=== PATIENT | female | born 1980 | race Two or more races ===

== ENCOUNTER 2019-01-03 16:49 | Emergency (ER) | payer OTHER ==
[~2019-01-03] VITALS: Ht 157.5 cm; Wt 77.1 kg
--- NOTE | 2019-01-03 17:10 | NUR ---
ED Nurse Note: Patient walked into ED c/o coughing, sore throat for 4 days patient reports fever at home 01/02/19
--- NOTE | 2019-01-03 17:27 | Emergency Room Report ---
History of Present Illness General Chief Complaint: Sore Throat Source: Patient Present Illness HPI 38-year-old female presents to the emergency department complaining of 7 out of 10 in severity sore throat with dry persistent cough 4 days. Patient reports subjective fever yesterday which responded well to Tylenol. Patient reports history of bronchitis and she is very prone to that sort of infection. Patient denies ill contacts or recent travel she denies photophobia, neck pain/stiffness , nausea, vomiting or ear pain. She denies history of asthma, COPD or smoking. no relieving factors at this time. Allergies: Coded Allergies: No Known Allergies (Unverified , 01/03/19) Patient History Past Medical History: see triage record Past Surgical History: none Pertinent Family History: none Last Menstrual Period: 12/31/18 Now: No Immunizations: UTD Reviewed Nursing Documentation: PMH: Agreed; PSxH: Agreed Nursing Documentation-PMH Past Medical History: No Stated History Review of Systems All Other Systems: negative except mentioned in HPI Physical Exam Vital Signs Date Time Temp Pulse Resp B/P (MAP) Pulse Ox O2 Delivery O2 Flow Rate FiO2 01/03/19 17:05 98.2 101 20 133/75 99 Room Air Sp02 EP Interpretation: reviewed, normal General Appearance: no apparent distress, alert, GCS 15, non-toxic Head: normocephalic, atraumatic Eyes: bilateral eye normal inspection, bilateral eye PERRL ENT: hearing grossly normal, normal pharynx, normal voice, TMs + canals normal , uvula midline, moist mucus membranes, nasal congestion Neck: full range of motion Respiratory: chest non-tender, lungs clear, normal breath sounds, no respiratory distress, no accessory muscle use, no wheezing, speaking full sentences Cardiovascular #1: regular rate, rhythm Musculoskeletal: back normal, gait/station normal, normal range of motion, non- tender Neurologic: alert, oriented x3, responsive, motor strength/tone normal, sensory intact, speech normal, grossly normal Psychiatric: judgement/insight normal Skin: normal color, no rash, warm/dry, well hydrated Lymphatic: no adenopathy Medical Decision Making PA Attestation Dr. scott is my supervising Physician whom patient management has been discussed with. Diagnostic Impression: Primary Impression: Bronchitis Additional Impression: Upper respiratory infection, viral ER Course 38-year-old female presents to the emergency department complaining of 7 out of 10 in severity sore throat with dry persistent cough 4 days. Patient reports subjective fever yesterday which responded well to Tylenol. Patient reports history of bronchitis and she is very prone to that sort of infection. Patient denies ill contacts or recent travel she denies photophobia, neck pain/stiffness , nausea, vomiting or ear pain. She denies history of asthma, COPD or smoking. no relieving factors at this time. Ddx considered but are not limited to URI, pneumonia, PE, strep pharyngitis, meningitis. Vital signs: Pt.is afebrile VS are WNL H&PE are most consistent with bronchitis ORDERS: none required at this time, the diagnosis is clinical ED INTERVENTIONS: None required at this time. DISCHARGE: At this time pt. is stable for d/c to home. Will provide printed patient care instructions, and any necessary prescriptions. Care plan and follow up instructions have been discussed with the patient prior to discharge. Last Vital Signs Date Time Temp Pulse Resp B/P (MAP) Pulse Ox O2 Delivery O2 Flow Rate FiO2 01/03/19 17:05 98.2 101 20 133/75 99 Room Air Disposition: HOME, SELF-CARE Condition: Stable Scripts No Active Prescriptions or Reported Meds Patient Instructions: Acute Bronchitis, [id number], Sore Throat Additional Instructions: Take medications as directed. Follow up with a Primary Care Provider in 3-5 days, even if your symptoms have resolved. --Please review list of primary care clinics, if you do not already have a primary care provider Return sooner to ED if new symptoms occur, or current symptoms become worse. Do not drink alcohol, drive, or operate heavy machinery while taking Cough Syrup as this may cause drowsiness. - Please note that this Emergency Department Report was dictated using [employer] maker technology software, occasionally this can lead to erroneous entry secondary to interpretation by the dictation equipment. Yanelis Gamez Jan 03, 2019 17:27
[2019-01-03] MEDS ORDERED: ZYRTEC-D TABLE1 EACH ORAL (17:28)
[2019-01-03] MEDS ORDERED: ALBUTEROL SULF8.5 GM INH (17:28)
[2019-01-03] MEDS ORDERED: PROMETHAZINE-C118 M1 ORAL (17:28)
[2019-01-03] MEDS ORDERED: LIDOCAINE VISC100 ML ORAL (17:28)
[2019-01-03 17:36] VITALS: BP 128/72
[2019-01-03 17:37] VITALS: BP 128/72
--- NOTE | 2019-01-03 17:38 | NUR ---
ER DISCHARGE NOTE: Patient is cleared to be discharged per ERMD, pt is aox4, on room air, with stable vital signs. pt was given dc and prescription instructions, pt was able to verbalize understanding, pt id band removed. pt is able to ambulate with steady gait. pt took all belongings.
--- NOTE | 2019-01-03 17:39 | NUR ---
Celestina oscar in EDM - 01/03/19 at 1740 by MEGGANO ED Nurse Note: Patient walked into ED c/o coughing, sore throat for 4 days patient reports fever at home 01/02/19
== END 2019-01-03 17:45 | disposition home or self-care (01) ==
LOC: EMR 17:24
DX: J40 Bronchitis, not specified as acute or chronic (principal); J06.9 Acute upper respiratory infection, unspecified
CPT/HCPCS: 99281